=== PATIENT | female | born 1955 | race African-American/Black ===

== ENCOUNTER 2018-03-11 12:20 | Emergency (ER) | payer OTHER ==
[2018-03-11 13:52] LABS: BILIRUBIN,URINE NEGATIVE (NEG); CLARITY,URINE CLEAR; COLOR,URINE YELLOW; GLUCOSE,URINE NEGATIVE (NEG); NITRITE,URINE NEGATIVE (NEG); PROTEIN,URINE NEGATIVE (NEG-TRACE); UROBILINOGEN,URINE 0.2 mg/dL (0.2 mg/dL)
[2018-03-11 13:55] LABS: ADD MAN DIFF? NO
[2018-03-11 13:57] LABS: BASO # 0.1 x10^3/uL (0.0-0.2); BASO % 1 % (0-3); EOS % 0 % (0-3); HEMATOCRIT 45.3 % (36.0-47.0); HEMOGLOBIN 15.7 g/dL (12.0-15.5); LYMPH # 2.1 x10^3/uL (1.0-4.8); LYMPH % 28 % (24-48); MEAN CORPUSCULAR HEMOGLOBIN 31 pg (25-35); MEAN CORPUSCULAR HGB CONC 35 g/dL (31-37); MEAN CORPUSCULAR VOLUME 89 fL (79-100); MONO # 0.4 x10^3/uL (0.0-1.1); MONO % 5 % (0-9); NEUT # 4.9 x10^3uL (1.8-7.7); NEUT % 65 % (31-73); PLATELET COUNT 257 x10^3/uL (140-400); RED BLOOD COUNT 5.11 x10^6/uL (3.50-5.40); RED CELL DISTRIBUTION WIDTH 14.9 % (11.5-14.5); WHITE BLOOD COUNT 7.6 x10^3/uL (4.0-11.0)
[2018-03-11] MEDS: ONDANSETRON PF 4 MG/2 ML VIAL. IV (14:01)
[2018-03-11] MEDS: DICYCLOMINE HCL 10 MG CAPSULE PO (14:01)
[2018-03-11] MEDS: IV NORMAL SALINE 1000ML BAG 1,000 ML IV (14:02)
[2018-03-11 14:08] LABS: ANION GAP 12 (6-14); BLOOD UREA NITROGEN 9 mg/dL (7-20); BUN/CREATININE RATIO 11 (6-20); CARBON DIOXIDE 24 mmol/L (21-32); CHLORIDE 107 mmol/L (98-107); CREATININE 0.8 mg/dL (0.6-1.0); GFR 88.5; GLUCOSE 90 mg/dL (70-99); POTASSIUM 4.1 mmol/L (3.5-5.1); SODIUM 143 mmol/L (136-145)
[2018-03-11 14:11] LABS: ETHANOL 22 mg/dL (0-10)
[2018-03-11 14:14] LABS: ALBUMIN 3.5 g/dL (3.4-5.0); ALBUMIN/GLOBULIN RATIO 0.9 (1.0-1.7); ALK PHOS 90 U/L (46-116); ALT (SGPT) 18 U/L (14-59); AST (SGOT) 20 U/L (15-37); LIPASE 162 U/L (73-393); TOTAL BILIRUBIN 0.4 mg/dL (0.2-1.0); TOTAL PROTEIN 7.5 g/dL (6.4-8.2)
[2018-03-11 14:16] LABS: BACTERIA,URINE MODERATE /HPF (0-FEW); BARBITURATES NEG (NEG); BENZODIAZEPINES NEG (NEG); CANNABINOIDS NEG (NEG); COCAINE NEG (NEG); METHADONE NEG (NEG); OPIATES NEG (NEG); PHENCYCLIDINE NEG (NEG); RBC,URINE 0 /HPF (0-2); SQUAMOUS EPITHELIAL CELL,UR FEW /LPF
[2018-03-11 14:25] LABS: AMPHETAMINE/METHAMPHETAMINE NEG (NEG); ETHANOL, URINE POS (NEG)
[2018-03-11] MEDS ORDERED: CONTRAST GIVEN MC (14:30)
[2018-03-11] MEDS: IOHEXOL 300 MG/ML 100ML VIAL. IV (14:37)
== END 2018-03-11 15:45 | disposition home or self-care (01) ==
LOC: ER 12:20
DX: R19.7 Diarrhea, unspecified (principal); R11.0 Nausea; F10.10 Alcohol abuse, uncomplicated; I10 Essential (primary) hypertension
CPT/HCPCS: 36415; 74177; 80053; 80307; 81001; 83690; 85025; 87086; 96361; 96374; 99285-25; G0480; J2405; J7030; Q9967

== ENCOUNTER 2018-07-29 17:02 | Emergency (ER) | payer OTHER ==
[~2018-07-29] VITALS: Ht 170.2 cm; Wt 81.6 kg
[~2018-07-29 17:02] MED LIST: DICY20TA3 PO; ONDA4TAB10 SL
--- NOTE | 2018-07-29 19:05 | PHYS DOC ---
Past Medical History Past Medical History: Hypertension Past Surgical History: Other Additional Past Surgical Histo: cyst removed from L breast Alcohol Use: Occasionally Drug Use: None Adult General Chief Complaint Chief Complaint: ABDOMINAL PAIN HPI HPI Patient is a 63-year-old female who presents to the emergency department for evaluation. She states that for the past several days she has been having generalized abdominal discomfort. She has no current abdominal discomfort as she states her pain has been coming and going and is completely resolved at this time. She reports no nausea or vomiting, no change in her bowel habits. She has been having normal bowel movements. She denies any fevers or chills, or dysuria. She states that she does have a new boyfriend, and her sister wanted her to become evaluated for potential STDs. She has had some vaginal discharge acuity is ago but that has resolved at this time. She denies any fevers or chills. She is postmenopausal, but states that she has been told in the past that she should get a hysterectomy due to fibroids in her uterus but has not done so. She has not had any headache, shortness of breath, current abdominal pain, back pain or flank pain, or current urinary symptoms. There are no alleviating or exacerbating factors to her symptoms. Review of Systems Review of Systems Constitutional: Denies fever or chills [] Eyes: Denies change in visual acuity, redness, or eye pain [] HENT: Denies nasal congestion or sore throat [] Respiratory: Denies cough or shortness of breath [] Cardiovascular: No additional information not addressed in HPI [] GI: Denies current abdominal pain, nausea, vomiting, bloody stools or diarrhea [ ] : Denies dysuria or hematuria [] Musculoskeletal: Denies back pain or joint pain [] Integument: Denies rash or skin lesions [] Neurologic: Denies headache, focal weakness or sensory changes [] Endocrine: Denies polyuria or polydipsia [] All other systems were reviewed and found to be within normal limits, except as documented in this note. Allergies Allergies Allergies Coded Allergies Type Severity Reaction Last Updated Verified No Known Drug Allergies 08/10/15 No Physical Exam Physical Exam PHYSICAL EXAM: CONSTITUTIONAL: Well developed, well nourished HEAD: normocephalic, atraumatic EENT: PERRL, EOMI. Conjunctivae normal color, sclerae non-icteric; moist mucous membranes. NECK: Supple, non-tender; no meningismus. LUNGS: Lungs CTA, breathing even and unlabored. Normal air movement. HEART: Regular rate and rhythm, no murmur CHEST: No deformity; non-tender ABDOMEN: The abdomen is soft, and non-tender, no masses or bruits. There is no reproducible tenderness to palpation of the abdomen. Normal bowel sounds are present EXTREM: Normal ROM; no deformity, no calf tenderness. Normal pulses palpable in all extremities. There is no pedal edema. SKIN: No rash; no diaphoresis NEURO: Alert; normal speech and cognition; CN's grossly intact; strength grossly intact without focal deficit. BACK: No CVA TTP. PELVIC EXAM: Normal external genitalia. There is a small to moderate amount of thin whitish vaginal discharge present, cervix appears normal, there is no definite cervical motion tenderness, adnexal mass, or adnexal tenderness to palpation. Current Patient Data Vital Signs Vital Signs Date Time Temp Pulse Resp B/P (MAP) Pulse Ox O2 Delivery O2 Flow Rate FiO2 07/29/18 19:19 97.8 78 18 138/84 (102) 97 Room Air 97.8 Lab Values Laboratory Tests Test 07/29/18 19:15 07/29/18 20:30 Urine Collection Type Unknown Urine Color Yellow Urine Clarity Clear Urine pH 5.5 Urine Specific [place] 1.015 Urine Protein Negative mg/dL (NEG-TRACE) Urine Glucose (UA) 100 mg/dL (NEG) Urine Ketones (Stick) Negative mg/dL (NEG) Urine Blood Negative (NEG) Urine Nitrite Positive (NEG) Urine Bilirubin Negative (NEG) Urine Urobilinogen Dipstick 0.2 mg/dL (0.2 mg/dL) Urine Leukocyte Esterase Negative (NEG) Urine RBC 0 /HPF (0-2) Urine WBC 5-10 /HPF (0-4) Urine Squamous Epithelial Cells Mod /LPF Urine Bacteria Many /HPF (0-FEW) Urine Mucus Slight /LPF White Blood Count 10.3 x10^3/uL (4.0-11.0) Red Blood Count 5.30 x10^6/uL (3.50-5.40) Hemoglobin 16.5 g/dL (12.0-15.5) H Hematocrit 47.7 % (36.0-47.0) H Mean Corpuscular Volume 90 fL (79-100) Mean Corpuscular Hemoglobin 31 pg (25-35) Mean Corpuscular Hemoglobin Concent 35 g/dL (31-37) Red Cell Distribution Width 14.0 % (11.5-14.5) Platelet Count 286 x10^3/uL (140-400) Neutrophils (%) (Auto) 61 % (31-73) Lymphocytes (%) (Auto) 30 % (24-48) Monocytes (%) (Auto) 9 % (0-9) Eosinophils (%) (Auto) 0 % (0-3) Basophils (%) (Auto) 1 % (0-3) Neutrophils # (Auto) 6.3 x10^3uL (1.8-7.7) Lymphocytes # (Auto) 3.1 x10^3/uL (1.0-4.8) Monocytes # (Auto) 0.9 x10^3/uL (0.0-1.1) Eosinophils # (Auto) 0.0 x10^3/uL (0.0-0.7) Basophils # (Auto) 0.1 x10^3/uL (0.0-0.2) Sodium Level 143 mmol/L (136-145) Potassium Level 3.5 mmol/L (3.5-5.1) Chloride Level 104 mmol/L (98-107) Carbon Dioxide Level 27 mmol/L (21-32) Anion Gap 12 (6-14) Blood Urea Nitrogen 7 mg/dL (7-20) Creatinine 0.8 mg/dL (0.6-1.0) Estimated GFR (Cockcroft-Gault) 88.2 BUN/Creatinine Ratio 9 (6-20) Glucose Level 76 mg/dL (70-99) Calcium Level 9.9 mg/dL (8.5-10.1) Total Bilirubin 0.5 mg/dL (0.2-1.0) Aspartate Amino Transferase (AST) 16 U/L (15-37) Alanine Aminotransferase (ALT) 25 U/L (14-59) Alkaline Phosphatase 74 U/L (46-116) Total Protein 7.9 g/dL (6.4-8.2) Albumin 3.7 g/dL (3.4-5.0) Albumin/Globulin Ratio 0.9 (1.0-1.7) L Lipase 172 U/L (73-393) Laboratory Tests 07/29/18 20:30 Laboratory Tests 07/29/18 20:30 Microbiology 07/29/18 Wet Prep - Final, Complete WET PREP Final YEAST NONE SEEN TRICHOMONAS NONE SEEN CLUE CELLS CLUE CELLS PRESENT ALTERED ZARIA ALTERED ZARIA PRESENT SUGGESTIVE OF BACTERIAL VAGINOSIS WBCS OCCASIONAL RBCS NO RBCS SEEN SQUAMOUS EPS MODERATE Radiology/Procedures Radiology/Procedures [] Course & Med Decision Making Course & Med Decision Making The patient's condition remains stable. She is feeling better at this time. I discussed importance of close follow-up for test results of syphilis and GC/ chlamydia testing. She'll be treated empirically for GC and chlamydia. She also expressed concern about HIV and hepatitis testing for which she was referred to the health department, and I stressed the importance of close outpatient follow- up with her equipment records supervisor for further evaluation, given her history of fibroid uterus. Return precautions were discussed in detail. The patient states that she does drink alcohol, but states she is able to abstain from alcohol during the course of treatment with Flagyl. Dragon Disclaimer Dragon Disclaimer This electronic medical record was generated, in whole or in part, using a voice recognition dictation system. Departure Departure Impression: Primary Impression: Vaginitis Disposition: HOME, SELF-CARE Condition: STABLE Referrals: KO CARNEY P.T. (PCP) VLAD HERRERA MD Patient Instructions: Bacterial Vaginosis, Safe Sex, Vaginitis, [id number] Additional Instructions: Follow-up as an outpatient with PUBLICITY MANAGER as instructed, to obtain test results from Chlamydia, gonorrhea, and syphilis testing done today. Additionally, to have concern for hepatitis or HIV, follow-up as an outpatient for testing, or at the health department where testing can be done. Scripts Metronidazole (FLAGYL) 500 Mg Tablet 1 TAB PO BID, #14 TAB Prov: MIGUEL BRADEN MD 07/29/18 Ciprofloxacin Hcl (CIPRO) 500 Mg Tablet 1 TAB PO BID, #14 TAB Prov: MIGUEL BRADEN MD 07/29/18 MIGUEL BRADEN MD Jul 29, 2018 19:05
[2018-07-29 19:19] VITALS: BP 138/84
[2018-07-29 19:26] LABS: BILIRUBIN,URINE NEGATIVE (NEG); CLARITY,URINE CLEAR; COLOR,URINE YELLOW; NITRITE,URINE POSITIVE (NEG); PH,URINE 5.5; PROTEIN,URINE NEGATIVE (NEG-TRACE); UROBILINOGEN,URINE 0.2 mg/dL (0.2 mg/dL)
[2018-07-29 19:37] LABS: BACTERIA,URINE MANY /HPF (0-FEW); RBC,URINE 0 /HPF (0-2); SQUAMOUS EPITHELIAL CELL,UR MOD /LPF
[2018-07-29 20:44] LABS: BASO # 0.1 x10^3/uL (0.0-0.2); BASO % 1 % (0-3); EOS % 0 % (0-3); HEMATOCRIT 47.7 % (36.0-47.0); HEMOGLOBIN 16.5 g/dL (12.0-15.5); LYMPH # 3.1 x10^3/uL (1.0-4.8); LYMPH % 30 % (24-48); MEAN CORPUSCULAR HEMOGLOBIN 31 pg (25-35); MEAN CORPUSCULAR HGB CONC 35 g/dL (31-37); MEAN CORPUSCULAR VOLUME 90 fL (79-100); MONO # 0.9 x10^3/uL (0.0-1.1); MONO % 9 % (0-9); NEUT # 6.3 x10^3uL (1.8-7.7); NEUT % 61 % (31-73); PLATELET COUNT 286 x10^3/uL (140-400); WHITE BLOOD COUNT 10.3 x10^3/uL (4.0-11.0)
[2018-07-29 20:56] LABS: CALCIUM 9.9 mg/dL (8.5-10.1); CREATININE 0.8 mg/dL (0.6-1.0); GFR 88.2; POTASSIUM 3.5 mmol/L (3.5-5.1)
[2018-07-29 21:01] LABS: ALBUMIN 3.7 g/dL (3.4-5.0); ALBUMIN/GLOBULIN RATIO 0.9 (1.0-1.7); TOTAL BILIRUBIN 0.5 mg/dL (0.2-1.0); TOTAL PROTEIN 7.9 g/dL (6.4-8.2)
[2018-07-29] MEDS ORDERED: CIPR500T94 PO (21:17)
[2018-07-29] MEDS ORDERED: METR500T PO (21:17)
[2018-08-02 15:26] LABS: GC PROBE Negative (Negative)
== END 2018-07-29 21:32 | disposition home or self-care (01) ==
LOC: ER 17:02
DX: N76.0 Acute vaginitis (principal); I10 Essential (primary) hypertension
CPT/HCPCS: 80053; 81001; 83690; 85025; 86592; 99284; Q0111; 36415; 87491; 87591

== ENCOUNTER 2018-09-29 05:34 | Observation (INO) | payer OTHER ==
[2018-09-29] VITALS (10 sets, daily range): BP systolic 96–125; BP diastolic 67–85
[~2018-09-29] VITALS: Ht 162.6 cm; Wt 65.8 kg
[~2018-09-29 05:34] MED LIST changes: +CIPR500T94 PO; +METR500T PO
[2018-09-29 06:30] LABS: BILIRUBIN,URINE SMALL (NEG); CLARITY,URINE CLEAR; COLOR,URINE AMBER; NITRITE,URINE NEGATIVE (NEG); PROTEIN,URINE NEGATIVE (NEG-TRACE); UROBILINOGEN,URINE 0.2 mg/dL (0.2 mg/dL)
[2018-09-29 06:47] LABS: BACTERIA,URINE MODERATE /HPF (0-FEW); RBC,URINE 0 /HPF (0-2); SQUAMOUS EPITHELIAL CELL,UR MOD /LPF
[2018-09-29 06:55] LABS: BASO # 0.1 x10^3/uL (0.0-0.2); BASO % 1 % (0-3); EOS # 0.1 x10^3/uL (0.0-0.7); EOS % 1 % (0-3); HEMATOCRIT 43.8 % (36.0-47.0); HEMOGLOBIN 15.2 g/dL (12.0-15.5); LYMPH # 2.7 x10^3/uL (1.0-4.8); LYMPH % 37 % (24-48); MEAN CORPUSCULAR HEMOGLOBIN 30 pg (25-35); MEAN CORPUSCULAR HGB CONC 35 g/dL (31-37); MEAN CORPUSCULAR VOLUME 87 fL (79-100); MONO # 0.5 x10^3/uL (0.0-1.1); MONO % 7 % (0-9); NEUT # 4.1 x10^3uL (1.8-7.7); NEUT % 55 % (31-73); PLATELET COUNT 248 x10^3/uL (140-400); RED BLOOD COUNT 5.02 x10^6/uL (3.50-5.40); RED CELL DISTRIBUTION WIDTH 13.6 % (11.5-14.5); WHITE BLOOD COUNT 7.4 x10^3/uL (4.0-11.0)
[2018-09-29] MEDS ORDERED: HYDROmorphone 2 MG/ML VIAL IV PRN ×2 (07:00→09:45)
[2018-09-29] MEDS ORDERED: PROCHLORPERAZINE 10 MG/2 ML VIAL. IV PRN (07:00)
[2018-09-29] MEDS ORDERED: IV RINGERS,LACTATED 1000ML 1,000 ML IV SCH (07:00)
[2018-09-29] MEDS ORDERED: fentaNYL PF VIAL 100 MCG/2 ML VIAL IV PRN (07:00)
[2018-09-29] MEDS ORDERED: ONDANSETRON PF 4 MG/2 ML VIAL. IV PRN ×2 (07:00→09:45)
[2018-09-29] MEDS ORDERED: LIDOCAINE 1% PF 2 ML VIAL. ID PRN (07:00)
[2018-09-29] MEDS ORDERED: MORPHINE SULFATE 2 MG/ML VIAL. IV PRN (07:00)
[2018-09-29] MEDS ORDERED: BUPIVAC MPF-EPI 0.5%-1:200000 30 ML VIAL. ONE (07:07)
[2018-09-29] MEDS ORDERED: ESTROGENS, CONJ VAGINAL CREAM 30GM TUBE. ONE (07:07)
[2018-09-29] MEDS ORDERED: METHYLENE BLUE 1% 10 ML VIAL. ONE (07:07)
[2018-09-29] MEDS ORDERED: PROPOFOL 20 ML IV ONE (07:09)
[2018-09-29] MEDS ORDERED: LIDOCAINE 2% PF Vial for OR 5 ML VIAL. ONE (07:09)
[2018-09-29] MEDS ORDERED: ROCURONIUM 50 MG/5 ML VIAL. ONE (07:09)
[2018-09-29] MEDS ORDERED: SUCCINYLCHOLINE 200 MG/10 ML VIAL. ONE (07:09)
[2018-09-29] MEDS ORDERED: fentaNYL PF VIAL 100 MCG/2 ML VIAL ONE ×2 (07:09→08:40)
--- NOTE | 2018-09-29 07:53 | PDOC1 ---
History and Physical Date of Admission Date of Admission DATE: 09/29/18 TIME: 07:47 Identification/Chief Complaint Chief Complaint SYMPTOMATIC FIBROIDS CPP Source Source: Caregiver, Patient History of Present Illness History of Present Illness Greater than one year H/O AUB,fibroids/CPP Past Medical History Cardiovascular: No pertinent hx Pulmonary: No pertinent hx GI: No pertinent hx Heme/Onc: No pertinent hx Hepatobiliary: No pertinent hx Psych: Other (MAD) Rheumatologic: No pertinent hx Infectious disease: No pertinent hx ENT: No pertinent hx Renal/: No pertinent hx Endocrine: No pertinent hx Dermatology: No pertinent hx Current Medications Current Medications Current Medications Cefazolin Sodium/ Dextrose 50 ml @ 100 mls/hr 1X PREOP PRN IV PRIOR TO PROCEDURE; Start 09/29/18 at 06:00; Stop 09/29/18 at 18:00 Ondansetron HCl (Zofran) 4 mg PRN Q6HRS PRN IV NAUSEA/VOMITING; Start at 07:00; Stop 09/30/18 at 06:59 Fentanyl Citrate (Fentanyl 2ml Vial) 25 mcg PRN Q5MIN PRN IV MILD PAIN; Start 09/29/18 at 07:00; Stop 09/30/18 at 06:59 Fentanyl Citrate (Fentanyl 2ml Vial) 50 mcg PRN Q5MIN PRN IV MODERATE TO SEVERE PAIN; Start 09/29/18 at 07:00; Stop 09/30/18 at 06:59 Morphine Sulfate (Morphine Sulfate) 1 mg PRN Q10MIN PRN IV SEVERE PAIN; Start 09/29/18 at 07:00; Stop 09/30/18 at 06:59 Ringer's Solution 1,000 ml @ 30 mls/hr Q24H IV Last administered on at 06:52; Start 09/29/18 at 07:00; Stop 09/29/18 at 18:59 Lidocaine HCl (Xylocaine-Mpf 1% 2ml Vial) 2 ml PRN 1X PRN ID PRIOR TO IV START ; Start 09/29/18 at 07:00; Stop 09/30/18 at 06:59 Hydromorphone HCl (Dilaudid) 0.5 mg PRN Q10MIN PRN IV SEV PAIN, Second choice; Start 09/29/18 at 07:00; Stop 09/30/18 at 06:59 Prochlorperazine Edisylate (Compazine) 5 mg PACU PRN PRN IV NAUSEA, MRX1; Start 09/29/18 at 07:00; Stop 09/30/18 at 06:59 Bupivacaine HCl/ Epinephrine Bitart (Sensorcain-Mpf Epi 0.5%-1:842605) 30 ml STK -MED ONCE .ROUTE ; Start 09/29/18 at 07:07; Stop 09/29/18 at 07:08; Status DC Methylene Blue (Methylene Blue) 1 ml STK-MED ONCE .ROUTE ; Start 09/29/18 at 07 :07; Stop 09/29/18 at 07:08; Status DC Estrogens Conjugated (Premarin) 30 nikolas STK-MED ONCE .ROUTE ; Start 09/29/18 at 07:07; Stop 09/29/18 at 07:08; Status DC Propofol 20 ml @ As Directed STK-MED ONCE IV ; Start 09/29/18 at 07:09; Stop 09/29/18 at 07:10; Status DC Lidocaine HCl (Lidocaine Pf 2% Vial) 5 ml STK-MED ONCE .ROUTE ; Start 09/29/18 at 07:09; Stop 09/29/18 at 07:10; Status DC Fentanyl Citrate (Fentanyl 2ml Vial) 100 mcg STK-MED ONCE .ROUTE ; Start at 07:09; Stop 09/29/18 at 07:10; Status DC Succinylcholine Chloride (Anectine) 200 mg STK-MED ONCE .ROUTE ; Start at 07:09; Stop 09/29/18 at 07:11; Status DC Rocuronium [place] (Zemuron) 50 mg STK-MED ONCE .ROUTE ; Start 09/29/18 at 07: 09; Stop 09/29/18 at 07:11; Status DC Active Scripts Active Reported No Known Medications Prior To Admisstion (Info) Each 1 Each MC 1X Allergies Allergies: Coded Allergies: No Known Drug Allergies (Unverified , 09/29/18) Physical Exam General: Alert, Oriented X3, Cooperative, No acute distress HEENT: PERRLA Breasts: Normal, Rt breast nml w/o mass, Lt breast nml w/o mass, Nipples normal Abdomen: Normal bowel sounds, Soft, No tenderness, No hepatosplenomegaly, No masses Rectal Exam: deferred PELVIC: Nml ext genitalia, Nml ext vulva, Nml ext vagina, Nml ext cervic, Other (enlarge uterus) Extremities: No clubbing, No cyanosis, No edema, Normal pulses, No tenderness/ swelling Neuro: Normal gait, Normal speech, Strength at 5/5 X4 ext, Normal tone, Sensation intact, Cranial nerves 3-12 NL, Reflexes 2+ Psych/Mental Status: Mental status NL, Mood NL Vitals Vitals Vital Signs Date Time Temp Pulse Resp B/P (MAP) Pulse Ox O2 Delivery O2 Flow Rate FiO2 09/29/18 06:24 98.1 81 16 139/93 95 Room Air 98.1 Labs Labs Laboratory Tests Test 09/29/18 06:05 09/29/18 06:30 Urine Collection Type Unknown Urine Color Daniella Urine Clarity Clear Urine pH 5.0 Urine Specific [place] 1.025 Urine Protein Negative mg/dL (NEG-TRACE) Urine Glucose (UA) Negative mg/dL (NEG) Urine Ketones (Stick) Negative mg/dL (NEG) Urine Blood Negative (NEG) Urine Nitrite Negative (NEG) Urine Bilirubin Small (NEG) Urine Urobilinogen Dipstick 0.2 mg/dL (0.2 mg/dL) Urine Leukocyte Esterase Small (NEG) Urine RBC 0 /HPF (0-2) Urine WBC 5-10 /HPF (0-4) Urine Squamous Epithelial Cells Mod /LPF Urine Bacteria Moderate /HPF (0-FEW) Urine Mucus Mod /LPF White Blood Count 7.4 x10^3/uL (4.0-11.0) Red Blood Count 5.02 x10^6/uL (3.50-5.40) Hemoglobin 15.2 g/dL (12.0-15.5) Hematocrit 43.8 % (36.0-47.0) Mean Corpuscular Volume 87 fL (79-100) Mean Corpuscular Hemoglobin 30 pg (25-35) Mean Corpuscular Hemoglobin Concent 35 g/dL (31-37) Red Cell Distribution Width 13.6 % (11.5-14.5) Platelet Count 248 x10^3/uL (140-400) Neutrophils (%) (Auto) 55 % (31-73) Lymphocytes (%) (Auto) 37 % (24-48) Monocytes (%) (Auto) 7 % (0-9) Eosinophils (%) (Auto) 1 % (0-3) Basophils (%) (Auto) 1 % (0-3) Neutrophils # (Auto) 4.1 x10^3uL (1.8-7.7) Lymphocytes # (Auto) 2.7 x10^3/uL (1.0-4.8) Monocytes # (Auto) 0.5 x10^3/uL (0.0-1.1) Eosinophils # (Auto) 0.1 x10^3/uL (0.0-0.7) Basophils # (Auto) 0.1 x10^3/uL (0.0-0.2) Laboratory Tests Test 09/29/18 06:05 09/29/18 06:30 Urine Collection Type Unknown Urine Color Daniella Urine Clarity Clear Urine pH 5.0 Urine Specific [place] 1.025 Urine Protein Negative mg/dL (NEG-TRACE) Urine Glucose (UA) Negative mg/dL (NEG) Urine Ketones (Stick) Negative mg/dL (NEG) Urine Blood Negative (NEG) Urine Nitrite Negative (NEG) Urine Bilirubin Small (NEG) Urine Urobilinogen Dipstick 0.2 mg/dL (0.2 mg/dL) Urine Leukocyte Esterase Small (NEG) Urine RBC 0 /HPF (0-2) Urine WBC 5-10 /HPF (0-4) Urine Squamous Epithelial Cells Mod /LPF Urine Bacteria Moderate /HPF (0-FEW) Urine Mucus Mod /LPF White Blood Count 7.4 x10^3/uL (4.0-11.0) Red Blood Count 5.02 x10^6/uL (3.50-5.40) Hemoglobin 15.2 g/dL (12.0-15.5) Hematocrit 43.8 % (36.0-47.0) Mean Corpuscular Volume 87 fL (79-100) Mean Corpuscular Hemoglobin 30 pg (25-35) Mean Corpuscular Hemoglobin Concent 35 g/dL (31-37) Red Cell Distribution Width 13.6 % (11.5-14.5) Platelet Count 248 x10^3/uL (140-400) Neutrophils (%) (Auto) 55 % (31-73) Lymphocytes (%) (Auto) 37 % (24-48) Monocytes (%) (Auto) 7 % (0-9) Eosinophils (%) (Auto) 1 % (0-3) Basophils (%) (Auto) 1 % (0-3) Neutrophils # (Auto) 4.1 x10^3uL (1.8-7.7) Lymphocytes # (Auto) 2.7 x10^3/uL (1.0-4.8) Monocytes # (Auto) 0.5 x10^3/uL (0.0-1.1) Eosinophils # (Auto) 0.1 x10^3/uL (0.0-0.7) Basophils # (Auto) 0.1 x10^3/uL (0.0-0.2) VTE Prophylaxis Ordered VTE Prophylaxis Devices: Yes VTE Pharmacological Prophylaxi: No Assessment/Plan Assessment/Plan CPP Fibroids GISELAB PEDRO BSO possible open AUGUSTA ADAMS MD Sep 29, 2018 07:53
[2018-09-29] MEDS ORDERED: ONDANSETRON PF 4 MG/2 ML VIAL. ONE (08:22)
[2018-09-29] MEDS ORDERED: NEOSTIGMINE METHYLSULFATE 5 MG/5 ML SYRINGE. ONE (08:22)
[2018-09-29] MEDS ORDERED: GLYCOPYRROLATE 1 MG/5 ML VIAL. ONE (08:22)
[2018-09-29] MEDS ORDERED: DEXAMETHASONE SOD PHOS 20 MG/5 ML VIAL. ONE (08:22)
[2018-09-29] MEDS ORDERED: DESFLURANE 61 TO 120 MINUTES IH ONE (08:22)
[2018-09-29] MEDS ORDERED: FAMOTIDINE 20 MG/2 ML VIAL ONE (08:23)
[2018-09-29] MEDS ORDERED: metroNIDAZOLE 0.75% VAGINAL 1 APP TUBE VG ONE (08:30)
[2018-09-29] MEDS ORDERED: SIMETHICONE 80 MG TAB.CHEW PO PRN (09:45)
[2018-09-29] MEDS ORDERED: DEXTROSE 50% 25 GM / 50ML DISP.SYRIN. IV PRN (09:45)
[2018-09-29] MEDS ORDERED: 0.9 % SODIUM CHLORIDE 10 ML DISP.SYRIN. IV PRN (09:45)
[2018-09-29] MEDS ORDERED: ZOLPIDEM 5 MG TABLET. PO PRN (09:45)
[2018-09-29] MEDS ORDERED: NALOXONE 0.4 MG/ML VIAL. IV PRN (09:45)
[2018-09-29] MEDS ORDERED: MAG HYDROX/ALUMINUM HYD/SIMETH 30 ML ORAL.SUSP PO PRN (09:45)
[2018-09-29] MEDS ORDERED: CALCIUM CARBONATE 500 MG TAB.CHEW PO PRN (09:45)
[2018-09-29] MEDS ORDERED: diphenhydrAMINE HCL 25 MG CAPSULE PO PRN (09:45)
[2018-09-29] MEDS: fentaNYL PF VIAL 100 MCG/2 ML VIAL IV PRN ×2 (10:14→10:24)
--- NOTE | 2018-09-29 11:00 | OP ---
DATE OF SURGERY: 09/29/2018 PREOPERATIVE DIAGNOSES: Symptomatic leiomyomata, postmenopausal bleeding, chronic pelvic pain. POSTOPERATIVE DIAGNOSES: Symptomatic leiomyomata, postmenopausal bleeding, chronic pelvic pain. PROCEDURE: Laparoscopic-assisted vaginal hysterectomy with bilateral salpingo-oophorectomy. SURGEON: Josue Chavez M.D. REGISTERED NURSE MATERNAL CHILD: Marv Zavala MD. ANESTHESIA: General. ESTIMATED BLOOD LOSS: 50 mL. FLUIDS: Crystalloid. SPECIMENS: Uterus, tubes, and ovaries. COMPLICATIONS: None. CONDITION: Stable. DESCRIPTION OF PROCEDURE: After risks, benefits, indications and alternatives discussed in detail with the patient, the patient was brought to the OR theater, placed in the dorsolithotomy position in [facility]. After adequate general anesthesia, the patient was prepped and draped in usual sterile manner. A HUMI uterine manipulator was placed in the vaginal vault. Attention was then turned to the anterior abdominal wall. A small vertical infraumbilical incision was made with the scalpel. Through this incision, via the Visiport, a 5 mm disposable trocar was placed. Two lateral 5 mm trocars were placed in the usual fashion after infiltrating the peritoneum and the skin. First, the left infundibulopelvic ligament was identified. Using the EnSeal device, it was clamped, cut, and cauterized using device. This was done down to the round ligament, broad ligament down to the cardinal ligaments. At that point, the bladder flap was starting to be created. Same procedure was carried on the opposite side and this was somewhat difficult secondary to medial leiomyomata and distortion of the uterus, but it was done safely and appropriately. A bladder flap was carried down to the level of the dome of the bladder. Good hemostasis was assured at all times. Attention was turned to the vaginal aspect of the procedure. The Valtchev uterine manipulator was removed. Single tooth tenaculum grasped the cervix. Posterior cul-de-sac was entered sharply with Nguyen scissors. Posterior leaf of the peritoneum was attached via [id number] 0 Vicryl. Anterior cul-de-sac was entered in the usual fashion by circumscribing the cervix using open Ray-Carlton and Metzenbaum scissors to enter the anterior cul-de-sac. This was done without any difficulty. The remaining uterosacral ligaments were clamped, cut, and tied. A large weighted speculum was placed in the vaginal vault to displace the rectum inferiorly. Curved [place] was placed in the anterior cul-de-sac to displace the bladder superiorly. The remaining attachments of the uterus was clamped, cut and tied with Jocelyn clamps. The uterus was delivered through the vaginal vault. The vaginal cuff was reapproximated with 0 Vicryl in an interrupted fashion. At that time, Dr. Zavala had started assessing the laparoscopic part of the procedure as I helped him, all the pedicles were intact. No bleeding. Good hemostasis was assured. Irrigation was performed to remove any blood or debris. The appendix was not identified. The patient did have [id number] on her right dome of her liver. Otherwise, no other pelvic or abdominal abnormalities that were gross were identified. Procedure was terminated. All laparoscopic instruments were removed. Pneumoperitoneum was allowed to dissipate. All trocar sleeves were removed. The incisions were reapproximated with 4-0 Monocryl in subcuticular fashion. Valtchev retractor had already been removed. The vagina was packed with vaginal packing and MetroGel and the procedure was terminated. Sponge, needle, instrument counts were correct x 2 per nursing staff. JOSUE CHAVEZ MD DR: AMY/ekta JOB#: [id number] / [id number]
[2018-09-29] MEDS: ceFAZolin SODIUM 1 GM in IV DEXTROSE 5% 50 ML IV SCH ×2 (14:13→21:10)
[2018-09-29] MEDS: oxyCODONE/APAP 5/325 1 TAB TABLET PO PRN ×2 (14:14→18:17)
[2018-09-29] MEDS: DOCUSATE SODIUM 100 MG CAPSULE. PO SCH (21:10)
[2018-09-29] MEDS: SENNOSIDES/DOCUSATE 8.6/50MG TABLET. PO SCH (21:28)
[2018-09-30] MEDS: oxyCODONE/APAP 5/325 1 TAB TABLET PO PRN ×4 (02:03→22:22)
[2018-09-30] MEDS: ceFAZolin SODIUM 1 GM in IV DEXTROSE 5% 50 ML IV SCH (02:03)
[2018-09-30 02:21] VITALS: BP 126/78
[2018-09-30 05:05] LABS: CALCIUM 9.1 mg/dL (8.5-10.1); CREATININE 1.1 mg/dL (0.6-1.0); GFR 61.1; POTASSIUM 3.9 mmol/L (3.5-5.1)
[2018-09-30 05:52] VITALS: BP 104/72
[2018-09-30 08:15] VITALS: BP 118/81
--- NOTE | 2018-09-30 09:52 | PDOC ---
SURGICAL PROGRESS NOTE Subjective Pt. feeling well. SHe is having some abd discomforts and gas pains. She is not ambulating on her own. Vital Signs Vital Signs Date Time Temp Pulse Resp B/P (MAP) Pulse Ox O2 Delivery O2 Flow Rate FiO2 09/30/18 05:52 98.6 83 20 104/72 (83) 96 Room Air 98.6 09/29/18 10:14 15.0 I&O Intake and Output 09/30/18 07:00 Intake Total 1340 ml Output Total 1325 ml Balance 15 ml Intake Oral 240 ml IV Total 1100 ml Output Urine Total 1275 ml Estimated Blood Loss 50 ml PATIENT HAS A KIRBY: No General: Alert, Oriented X3, Cooperative HEENT: Atraumatic Lungs: Clear to auscultation Heart: Regular rate Abdomen: Normal bowel sounds, Soft, No masses, Other (mild diffuse tenderness) Extremities: No edema Psych/Mental Status: Mental status NL Labs Laboratory Tests Test 09/29/18 06:05 09/29/18 06:30 09/30/18 04:15 Urine Collection Type Unknown Urine Color [place]iella Urine Clarity Clear Urine pH 5.0 Urine Specific [place] 1.025 Urine Protein Negative mg/dL (NEG-TRACE) Urine Glucose (UA) Negative mg/dL (NEG) Urine Ketones (Stick) Negative mg/dL (NEG) Urine Blood Negative (NEG) Urine Nitrite Negative (NEG) Urine Bilirubin Small (NEG) Urine Urobilinogen Dipstick 0.2 mg/dL (0.2 mg/dL) Urine Leukocyte Esterase Small (NEG) Urine RBC 0 /HPF (0-2) Urine WBC 5-10 /HPF (0-4) Urine Squamous Epithelial Cells Mod /LPF Urine Bacteria Moderate /HPF (0-FEW) Urine Mucus Mod /LPF White Blood Count 7.4 x10^3/uL (4.0-11.0) Red Blood Count 5.02 x10^6/uL (3.50-5.40) Hemoglobin 15.2 g/dL (12.0-15.5) Hematocrit 43.8 % (36.0-47.0) 37.1 % (36.0-47.0) Mean Corpuscular Volume 87 fL (79-100) Mean Corpuscular Hemoglobin 30 pg (25-35) Mean Corpuscular Hemoglobin Concent 35 g/dL (31-37) Red Cell Distribution Width 13.6 % (11.5-14.5) Platelet Count 248 x10^3/uL (140-400) Neutrophils (%) (Auto) 55 % (31-73) Lymphocytes (%) (Auto) 37 % (24-48) Monocytes (%) (Auto) 7 % (0-9) Eosinophils (%) (Auto) 1 % (0-3) Basophils (%) (Auto) 1 % (0-3) Neutrophils # (Auto) 4.1 x10^3uL (1.8-7.7) Lymphocytes # (Auto) 2.7 x10^3/uL (1.0-4.8) Monocytes # (Auto) 0.5 x10^3/uL (0.0-1.1) Eosinophils # (Auto) 0.1 x10^3/uL (0.0-0.7) Basophils # (Auto) 0.1 x10^3/uL (0.0-0.2) Sodium Level 139 mmol/L (136-145) Potassium Level 3.9 mmol/L (3.5-5.1) Chloride Level 104 mmol/L (98-107) Carbon Dioxide Level 27 mmol/L (21-32) Anion Gap 8 (6-14) Blood Urea Nitrogen 6 mg/dL (7-20) Creatinine 1.1 mg/dL (0.6-1.0) Estimated GFR (Cockcroft-Gault) 61.1 Glucose Level 109 mg/dL (70-99) Calcium Level 9.1 mg/dL (8.5-10.1) Laboratory Tests Test 09/30/18 04:15 Hematocrit 37.1 % (36.0-47.0) Sodium Level 139 mmol/L (136-145) Potassium Level 3.9 mmol/L (3.5-5.1) Chloride Level 104 mmol/L (98-107) Carbon Dioxide Level 27 mmol/L (21-32) Anion Gap 8 (6-14) Blood Urea Nitrogen 6 mg/dL (7-20) Creatinine 1.1 mg/dL (0.6-1.0) Estimated GFR (Cockcroft-Gault) 61.1 Glucose Level 109 mg/dL (70-99) Calcium Level 9.1 mg/dL (8.5-10.1) Assessment/Plan POD#1 s/p LAVH & BSO P: Continue post op care. EL AGUERO Jr, MD Sep 30, 2018 09:52
[2018-09-30] MEDS: DOCUSATE SODIUM 100 MG CAPSULE. PO SCH ×2 (13:33→22:21)
[2018-09-30] MEDS: SENNOSIDES/DOCUSATE 8.6/50MG TABLET. PO SCH ×2 (13:34→21:00)
[2018-09-30 18:01] VITALS: BP 139/88
[2018-09-30 23:08] VITALS: BP 110/80
[2018-10-01] MEDS: DOCUSATE SODIUM 100 MG CAPSULE. PO SCH (06:09)
[2018-10-01] MEDS: oxyCODONE/APAP 5/325 1 TAB TABLET PO PRN (06:09)
[2018-10-01 06:46] VITALS: BP 116/80
--- NOTE | 2018-10-01 08:22 | PDOC ---
Provider Note Provider Note Doing well VSS Abd soft NTTP DC home AUGUSTA ADAMS MD Oct 01, 2018 08:22
[2018-10-01] MEDS ORDERED: NAPR-514 PO (08:32)
[2018-10-01] MEDS ORDERED: OXYC1TAB15 PO (08:32)
[2018-10-01] MEDS: SENNOSIDES/DOCUSATE 8.6/50MG TABLET. PO SCH (09:35)
--- NOTE | 2018-10-01 11:20 | DS ---
DATE OF DISCHARGE: 10/01/2018 ADMITTING DIAGNOSES: Symptomatic leiomyomata, postmenopausal bleeding and chronic pelvic pain. DISCHARGE DIAGNOSES: Symptomatic leiomyomata, postmenopausal bleeding and chronic pelvic pain. PROCEDURE: Laparoscopic-assisted total vaginal hysterectomy with bilateral salpingo-oophorectomy. HOSPITAL COURSE: The patient's hospital course was unremarkable. On postop day #1, the Ellis had been removed. Her temperature was 98.6, pulse 83, respirations 20, blood pressure 104/72. Her hematocrit was 37.1, down from 43.8. Her Ellis has been removed. Vaginal packing was removed. She was voiding without any difficulty and abdomen was soft. The patient's pain was not controlled significantly secondary to her age, she was kept another night. On postop day #2, the patient was doing quite well, tolerating regular diet, ambulating in the halls without assistance, afebrile. The patient was discharged home in stable condition. Routine discharge instructions given. Percocet and naproxen given and the patient will follow up with me in 1 week. AUGUSTA ADAMS MD DR: AMY/ekta JOB#: [id number] / [id number]
[2018-10-01 12:06] VITALS: BP 112/80
--- NOTE | 2018-10-01 15:09 | PATHOLOGY ---
[facility] [place] Accession Number: [id number] . 01 Material submitted: . CERVIX, UTERUS, BILATERAL TUBE AND OVARIES . 01 Clinical history: . Fibroids, PMB . 02 Diagnosis: Uterus, cervix, fallopian tubes and ovaries, "cervix, uterus, bilateral tubes and ovaries, hysterectomy and bilateral salpingo-oophorectomy: - Cervix revealing chronic cervicitis and Nabothian cyst. - The subserosal nodule is hyalinized leiomyoma. - Atrophic cystic endometrium without hyperplasia or malignancy. - Multiple intramural and subserosal nodules with hyalinization and dystrophic calcification; the largest measuring up to 3.4 cm in greatest dimension without significant atypia, increased mitoses or necrosis. - Left ovary with benign simple cyst. - Left fallopian tube with no diagnostic changes. - Right ovary with benign simple cyst. - Right fallopian tube with benign paratubal cyst. (SHA:mohan; 10/01/2018) QMS/10/01/2018 . 02 Electronically signed: . Rudy Enriquez MD, Pathologist NPI- [id number] . 01 Gross description: . The specimen is received in formalin, labeled "Christie Boris, cervix, uterus, bilateral tubes, ovaries". Received is a 144 g, 8.8 x 6.2 x 7.1 cm distorted uterus with attached cervix and attached adnexa, weighing 5 g each. The uterine serosa is pale cabrales to pink-georges in distorted in appearance with an attached nodule present near the lower uterine segment measuring 1.9 x 1.9 x 1.2 cm. The 1.2 cm cervical os is surrounded by pale cabrales, smooth to light brown, granular ectocervical mucosa. The specimen is oriented using the peritoneal reflection and the anterior paracervical margin is inked black. The uterus is opened laterally to reveal a georges-cabrales endocervical canal measuring 2.5 cm in length. The endometrial cavity is triangular measuring 4.1 cm in length by 2.9 cm in width. The endometrium is pink-cabrales, glistening in appearance and measures 0.1 cm in thickness. Serial sectioning reveals a cabrales-pink, trabeculated myometrium measuring up to 3.3 cm in thickness displaying multiple subserosal and intramural fibroids ranging in size from 0.5 to 3.4 cm. . The left adnexa consists of a fimbriated fallopian tube measuring 5.2 cm in length by up to 0.5 cm in diameter attached to a 3.0 x 1.4 x 0.8 cm ovary. Sectioning through the fallopian tube reveals a pinpoint to patent lumen. Sectioning through the ovary reveals pale cabrales, normal ovarian stroma. . The right adnexa consists of a fimbriated fallopian tube measuring 5.1 cm in length by 0.4 cm in diameter attached to a 2.9 x 1.5 x 1.0 cm ovary. Sectioning through the fallopian tube reveals a pinpoint to patent lumen. Sectioning through the ovary reveals multiple unilocular cystic structures ranging in size from 0.2 to 0.8 cm filled with clear fluid. Remaining cut surfaces display pale cabrales, normal ovarian stroma. The specimen is submitted representatively as follows: . A1 12:00 cervix A2 6:00 cervix A3 serosal nodule A4 anterior endomyometrium A5 posterior endomyometrium A6-A7 pharmacy sales representative sections of subserosal and intramural fibroids A8 left adnexa A9 right adnexa. (CAA; 09/30/2018) QAC/QAC . 02 Pathologist provided ICD-10: N72, N88.8, N85.8, N83.292, N83.291, N83.8 . 02 CPT . 613735 Specimen Comment: A courtesy copy of this report has been sent to Specimen Comment: [phone], . Specimen Comment: Report sent to / DR CARNEY Specimen Comment: A duplicate report has been generated due to demographic updates. Performed at: [address] [place] [address] [address], [place], [place] [id number] MD Taurus Contreras MD Phone: [phone] Performed at: 02 [facility] [address] [place], [place] [id number] MD Jim Miller MD Phone: [phone]
== END 2018-10-01 16:01 | disposition home or self-care (01) ==
LOC: SURG 05:34 → 3 NORTH 10:27
PROVIDERS: ADMIT Specialist; ATTEND Specialist
DX: D25.9 Leiomyoma of uterus, unspecified (principal); N95.0 Postmenopausal bleeding; G89.29 Other chronic pain; R10.2 Pelvic and perineal pain; Z79.899 Other long term (current) drug therapy
CPT/HCPCS: 36415; 58552; 80048; 81001; 85014; 85025; 86850; 86900; 86901; 87086; 87186; 88307; 96365; 96366; 96375; A7015; G0378; G0379; J0330; J0690; J1100; J1170; J2001; J2405; J2704; J2710; J3010; J3490; J7030; J7120; Q9968

== ENCOUNTER 2018-11-15 20:22 | Emergency (ER) | payer OTHER ==
[~2018-11-15] VITALS: Ht 157.5 cm; Wt 49.9 kg
[~2018-11-15 20:22] MED LIST changes: +NAPR-514 PO; +OXYC1TAB15 PO
[2018-11-15 20:31] VITALS: BP 153/96
[2018-11-15] MEDS ORDERED: SULF1TAB24 PO (20:32)
--- NOTE | 2018-11-15 20:32 | PHYS DOC ---
Past Medical History Past Medical History: Hypertension Past Surgical History: No Surgical History Additional Past Surgical Histo: cyst removed from L breast Alcohol Use: Occasionally Drug Use: None Adult General Chief Complaint Chief Complaint: SKIN PROBLEM HPI HPI Patient is a 63 year old female who presents with patient states for last week she's noticed abscesses in her arm pits bilaterally. She denies fevers. She rates her pain 7 out of 10 she's been taking Advil which is taking care of her pain. Review of Systems Review of Systems Constitutional: Denies fever or chills [] Eyes: Denies change in visual acuity, redness, or eye pain [] HENT: Denies nasal congestion or sore throat [] Respiratory: Denies cough or shortness of breath [] Cardiovascular: No additional information not addressed in HPI [] GI: Denies abdominal pain, nausea, vomiting, bloody stools or diarrhea [] : Denies dysuria or hematuria [] Musculoskeletal: Denies back pain or joint pain [] Integument: Denies rash or skin lesions [] Neurologic: Denies headache, focal weakness or sensory changes [] Endocrine: Denies polyuria or polydipsia [] All other systems were reviewed and found to be within normal limits, except as documented in this note. Allergies Allergies Allergies Coded Allergies Type Severity Reaction Last Updated Verified No Known Drug Allergies 09/29/18 No Physical Exam Physical Exam Constitutional: Well developed, well nourished, no acute distress, non-toxic appearance. [] HENT: Normocephalic, atraumatic, bilateral external ears normal, oropharynx moist, no oral exudates, nose normal. [] Eyes: PERRLA, EOMI, conjunctiva normal, no discharge. [] Neck: Normal range of motion, no tenderness, supple, no stridor. [] Cardiovascular:Heart rate regular rhythm, no murmur [] Lungs & Thorax: Bilateral breath sounds clear to auscultation [] Abdomen: Bowel sounds normal, soft, no tenderness, no masses, no pulsatile masses. [] Skin: Warm, dry, no erythema, no rash. [] Back: No tenderness, no CVA tenderness. [] Extremities: No tenderness, no cyanosis, no clubbing, ROM intact, no edema. [] Neurologic: Alert and oriented X 3, normal motor function, normal sensory function, no focal deficits noted. [] Psychologic: Affect normal, judgement normal, mood normal. [] Current Patient Data Vital Signs Vital Signs Date Time Temp Pulse Resp B/P (MAP) Pulse Ox O2 Delivery O2 Flow Rate FiO2 11/15/18 20:31 98.9 95 20 153/96 (115) 100 Room Air 98.9 EKG EKG [] Radiology/Procedures Radiology/Procedures [] Course & Med Decision Making Course & Med Decision Making Patient is a 63 year old female who presents with patient states for last week she's noticed abscesses in her arm pits bilaterally. She denies fevers. She rates her pain 7 out of 10 she's been taking Advil which is taking care of her pain. Afebrile. There is no streaking going redness at abscesses. On her right axillary dark to abscesses one that is dime-sized and slightly raised and slightly red but hard, the other is nickel-sized that is open and draining purulent fluid. In the right axillary there are 2 abscesses both nickel sized 1 reddish slightly raised but hard and the other is open and draining. Patient is put on antibiotics and is told to follow-up with her primary care doctor this week for continuation of care. Should continue taking her pain medicine and take the antibiotics as prescribed. Patient is stable and in no distress. Dragon Disclaimer Dragon Disclaimer This electronic medical record was generated, in whole or in part, using a voice recognition dictation system. Departure Departure Impression: Primary Impression: Abscess Disposition: 01 HOME, SELF-CARE Condition: STABLE Referrals: [facility] CARNEY P.T. (PCP) Patient Instructions: Abscess Additional Instructions: Call your primary care provider in the morning to schedule put in for follow-up care. Take antibiotic as prescribed. Scripts Sulfamethoxazole/Trimethoprim (BACTRIM DS TABLET) 1 Each Tablet 1 TAB PO BID, #20 TAB Prov: LAZARUS CHOWDHURY LOT ATTENDANT 11/15/18 LAZARUS CHOWDHURY LOT ATTENDANT Nov 15, 2018 20:32
== END 2018-11-15 20:51 | disposition home or self-care (01) ==
LOC: ER 20:22
DX: L02.411 Cutaneous abscess of right axilla (principal); L02.412 Cutaneous abscess of left axilla; I10 Essential (primary) hypertension
CPT/HCPCS: 99281; 99283

== ENCOUNTER 2019-07-06 13:19 | Emergency (ER) | payer OTHER ==
[~2019-07-06] VITALS: Ht 162.6 cm; Wt 72.6 kg
[~2019-07-06 13:19] MED LIST changes: +SULF1TAB24 PO
[2019-07-06 13:35] VITALS: BP 118/75
--- NOTE | 2019-07-06 13:59 | PHYS DOC ---
Past Medical History Past Medical History: No Pertinent History, Hypertension (LAZARUS CHOWDHURY APRN) Past Surgical History: No Surgical History Additional Past Surgical Histo: cyst removed from L breast (LAZARUS CHOWDHURY APRN) Alcohol Use: Heavy Additional Information: DAILY Drug Use: None (LAZARUS CHOWDHURY APRN) Adult General Chief Complaint Chief Complaint: ANKLE PROBLEM HPI HPI Patient is a 64 year old female who presents with fell backward 5 days ago and states that she hit her left foot and ankle on the concrete. Patient states she denies her head and she is on blood thinners. This was 5 days ago. Patient has bruising from the mid calf down to her toes. Patient states the bruising was a lot worse but is getting better. The bruising does look like its healing. She rates her pain a 10 out of 10. Patient did not drive herself. Patient states she's been ambulating on the foot but it is painful. (LAZARUS CHOWDHURY APRN) Review of Systems Review of Systems Constitutional: Denies fever or chills [] Musculoskeletal: Denies back pain. Left foot and ankle joint pain [] Integument: Left calf, foot and ankle bruising. Denies rash or skin lesions [] Neurologic: Denies headache, focal weakness or sensory changes [] All other systems were reviewed and found to be within normal limits, except as documented in this note. (LAZARUS CHOWDHURY APRN) Current Medications Current Medications Current Medications Medications (Trade) Dose Ordered Sig/Chloe Start Time Stop Time Status Last Admin Dose Admin Acetaminophen/ Hydrocodone Bitart (Lortab 5/325) 1 tab 1X ONCE 07/06/19 14:00 07/06/19 14:01 DC 07/06/19 14:14 1 TAB (DILSHAD GREGORY DO) Allergies Allergies Allergies Coded Allergies Type Severity Reaction Last Updated Verified No Known Drug Allergies 09/29/18 No (DILSHAD GREGORY DO) Physical Exam Physical Exam Constitutional: Well developed, well nourished, no acute distress, non-toxic appearance. [] Skin: Left calf, foot, and ankle bruising. Warm, dry, no erythema, no rash. [] Back: No tenderness, no CVA tenderness. [] Extremities: Left ankle and foot tenderness, no cyanosis, no clubbing, ROM intact, Left ankle and foot edema. [] Neurologic: Alert and oriented X 3, normal motor function, normal sensory function, no focal deficits noted. [] Psychologic: Affect normal, judgement normal, mood normal. [] (LAZARUS CHOWDHURY APRN) Current Patient Data Vital Signs Vital Signs Date Time Temp Pulse Resp B/P (MAP) Pulse Ox O2 Delivery O2 Flow Rate FiO2 07/06/19 13:35 98.1 76 16 118/75 (89) 97 Room Air 98.1 (DILSHAD GREGORY DO) EKG EKG [] (LAZARUS CHOWDHURY APRN) Radiology/Procedures Radiology/Procedures [] (LAZARUS CHOWDHURY APRN) Impressions: [facility] [address] [place] [address] IMAGING REPORT Signed PATIENT: DELFINO ALEXANDRA ACCOUNT: [id number] : 1955 LOCATION: ER AGE: 64 SEX: F EXAM STATUS: REG ER ORD. PHYSICIAN: LAZARUS CHOWDHURY APRN REASON: fall PROCEDURE: TIBIA FIBULA LEFT Examination: 2 views of the left tibia and fibula, 3 views of the left ankle, 3 views of the left foot HISTORY: History of fall COMPARISON: None available FINDINGS: There is minimal displaced oblique fracture of the distal fibula with the fracture line extending into the distal tibiofibular joint. Mild soft tissue swelling identified lateral to lateral malleolus. The alignment of the tarsal bones, tarsometatarsal joints, interphalangeal, interphalangeal joints grossly appears unremarkable. IMPRESSION: 1. Minimal displaced fracture of the distal fibula with the fracture line extending into the distal tibiofibula joint. Electronically signed by: Fidel Oneill MD (07/06/2019 2:33 PM) [facility] DICTATED and SIGNED BY: FIDEL ONEILL MD DATE: 07/06/19 1433 (LAZARUS CHOWDHURY APRN) Course & Med Decision Making Course & Med Decision Making Patient is a 64 year old female who presents with fell backward 5 days ago and states that she hit her left foot and ankle on the concrete. Patient states she denies her head and she is on blood thinners. This was 5 days ago. Patient has bruising from the mid calf down to her toes. Patient states the bruising was a lot worse but is getting better. The bruising does look like its healing. She rates her pain a 10 out of 10. Patient did not drive herself. Patient states she's been ambulating on the foot but it is painful. Skin pink warm and dry. Patient has bruising from mid calf down to her toes. Pedal pulses present. Cap refill less than 3 seconds. There is 2+ edema in the ankle and foot. Patient has dorsal left foot generalized tenderness to palpation. Patient has anterior, posterior, lateral and medial left ankle tenderness with palpation. Patient has no tenderness with palpation upper tib-fib with the bruising is. No deformity, abrasions or lacerations seen or felt to the left lower extremity. Ambulatory with a steady gait. Denies any numbness or tingling or coolness of the extremity. Xray shows 1. Minimal displaced fracture of the distal fibula with the fracture line extending into the distal tibiofibula joint. Sugar tong splint placed by RN. Patient to follow up with Dr Larson within the next 2 days. Splint Assessment: Neurovascularly intact post splint placement with good fit. (LAZARUS CHOWDHURY APRN) Dragon Disclaimer Dragon Disclaimer This electronic medical record was generated, in whole or in part, using a voice recognition dictation system. (LAZARUS CHOWDHURY APRN) Splinting Splinting : Location: Left ankle Hand-Made Type: orthoglass Splint: sugar-tong Pre-Proc Neuro Vasc Exam: normal Post-Proc Neuro Vasc Exam: normal, unchanged from pre-exam (DILSHAD GREGORY DO) Departure Departure Impression: Primary Impression: Fibula fracture Disposition: 01 HOME, SELF-CARE Condition: STABLE Referrals: UNKNOWN PCP NAME (PCP) Patient Instructions: Fibular Fracture with [facility] Additional Instructions: Follow up with Dr Larson within the next 3 days. Use crutches. Take medications as prescribed. Scripts Hydrocodone/Apap 5-325 (NORCO 5-325 TABLET) 1 Each Tablet 1 TAB PO PRN Q6HRS PRN for PAIN, #10 TAB 0 Refills Prov: LAZARUS CHOWDHURY APRN 07/06/19 Attending Signature Attending Signature I have reviewed the PA/SEED CLEANER OPERATOR's note and plan of care. I was available for consultation as needed during the patient's visit in the emergency department. I agree with the clinical impression, plan, and disposition. (DILSHAD GREGORY DO) Problem Qualifiers Primary Impression: Fibula fracture Encounter type: initial encounter Fibula location: distal Fracture type: closed Fracture morphology: other fracture Laterality: left Qualified Codes: S82.832A - Other fracture of upper and lower end of left fibula, initial encounter for closed fracture LAZARUS CHOWDHURY APRN Jul 06, 2019 13:59 DILSHAD GREGORY DO Jul 07, 2019 12:26
[2019-07-06] MEDS ORDERED: HYDROcodone/APAP 5/325MG 1 TAB TABLET PO ONE (14:00)
--- NOTE | 2019-07-06 14:36 | RAD ---
Examination: 2 views of the left tibia and fibula, 3 views of the left ankle, 3 views of the left foot HISTORY: History of fall COMPARISON: None available FINDINGS: There is minimal displaced oblique fracture of the distal fibula with the fracture line extending into the distal tibiofibular joint. Mild soft tissue swelling identified lateral to lateral malleolus. The alignment of the tarsal bones, tarsometatarsal joints, interphalangeal, interphalangeal joints grossly appears unremarkable. IMPRESSION: 1. Minimal displaced fracture of the distal fibula with the fracture line extending into the distal tibiofibula joint. Electronically signed by: Fidel Oneill MD (07/06/2019 2:33 PM) [id number]
[2019-07-06] MEDS ORDERED: HYDR-3164 PO (14:53)
== END 2019-07-06 15:42 | disposition home or self-care (01) ==
LOC: ER 13:19
DX: S82.832A Other fracture of upper and lower end of left fibula, initial encounter for closed fracture (principal); I10 Essential (primary) hypertension; F10.20 Alcohol dependence, uncomplicated; Y90.9 Presence of alcohol in blood, level not specified; W18.39XA Other fall on same level, initial encounter; Y93.89 Activity, other specified; Y92.89 Other specified places as the place of occurrence of the external cause; Y99.8 Other external cause status
CPT/HCPCS: 29515; 73590; 73610; 73630; 99284